=== PATIENT | female | born 1990 | race Two or more races ===

== ENCOUNTER 2020-12-13 22:20 | Outpatient (CLI) | payer OTHER ==
[2020-12-13] MEDS ORDERED: PRENATAL TABLE1 EAC1 PO (22:57)
[2020-12-13] MEDS ORDERED: TIROSINT100 MCG PO (22:58)
== END 2020-12-14 10:40 | disposition home or self-care (01) ==
LOC: OBS/DEL 22:20
PROVIDERS: ATTEND Obstetrics & Gynecology
DX: O99.113 Other diseases of the blood and blood-forming organs and certain disorders involving the immune mechanism complicating pregnancy, third trimester (principal); D69.49 Other primary thrombocytopenia; Z3A.37 37 weeks gestation of pregnancy

== ENCOUNTER 2020-12-15 13:00 | Inpatient (IN) | payer OTHER ==
[~2020-12-15] VITALS: Ht 152.4 cm; Wt 70.3 kg
[~2020-12-15 13:00] MED LIST: PRENATAL TABLE1 EAC1 PO; TIROSINT100 MCG PO
== END 2020-12-31 14:53 | disposition home or self-care (01) | DRG 788 ==
LOC: LDR 12-28 05:59 → OB/GYN 12-28 05:59 → SURH 12-31 13:00 → OB/GYN 12-31 14:53
PROVIDERS: ADMIT Obstetrics & Gynecology; ATTEND Obstetrics & Gynecology
PROC: 4A1HXFZ Monitoring of Products of Conception, Cardiac Rhythm, External Approach (ICD-10-PCS; 2020-12-28)
PROC: 10D00Z1 Extraction of Products of Conception, Low, Open Approach (ICD-10-PCS; principal; 2020-12-28 20:15)
DX: O61.0 Failed medical induction of labor (principal); O13.4 Gestational [pregnancy-induced] hypertension without significant proteinuria, complicating childbirth; Z3A.39 39 weeks gestation of pregnancy; Z37.0 Single live birth